=== PATIENT | male | born 1970 | race Caucasian/White ===

== ENCOUNTER 2018-07-13 14:07 | Emergency (ER) | payer OTHER ==
[2018-07-13 14:14] VITALS: BP 136/92
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
== END 2018-07-13 14:46 | disposition home or self-care (01) ==
LOC: ED 14:07
DX: Z02.89 Encounter for other administrative examinations (principal); I10 Essential (primary) hypertension
CPT/HCPCS: 1040M; 99282